=== PATIENT | male | born 1970 | race Caucasian/White ===

== ENCOUNTER 2018-03-13 15:03 | Inpatient (IN) | payer OTHER ==
[2018-03-13 15:35] LABS: BASO % 1.1 % (0-2.0); EOS % 0.4 % (0-4.5); HEMATOCRIT 40.4 % (35.4-49); LYMPH % 15.2 % (8-40); MCH 31.8 pg (25.7-33.7); MCHC 34.7 g/dl (32.0-35.9); MEAN CELL VOLUME 91.7 fl (80-96); MEAN PLT VOLUME 9.4 fl (7.5-11.1); MONO % 20.9 % (3.8-10.2); NEUT % 62.4 % (42.8-82.8); PLATELET COUNT 197 K/MM3 (134-434); RDW 13.5 % (11.9-15.9); WHITE BLOOD COUNT 6.2 K/mm3 (4.0-10.0)
--- NOTE | 2018-03-13 15:59 | PDOC ---
History of Present Illness - General Chief Complaint: Respiratory Stated Complaint: COLD LIKE SYMPTOMS Time Seen by Provider: 03/13/18 15:59 - History of Present Illness Initial Comments: 03/13/18 16:05 Mr. Holm is a 48 yo male w/ pmh of MS ('00) on ocrevus (immunosuppresant 2x per year, last infusion 03/07/18), HLD, who presents for evaluation of 3 day history of cough, fever, body aches, and headache. Patient was initially attempting to manage with symptomatics however presented today as symptoms have not improved. Flu positive at triage. The patient denies chest pain, shortness of breath, and dizziness. Denies chills , nausea, vomit, diarrhea and constipation. Denies dysuria, frequency, urgency and hematuria. Past History - Past Medical History Allergies/Adverse Reactions: Allergies Allergy/AdvReac Type Severity Reaction Status Date / Time No Known Allergies Allergy Verified 03/13/18 15:16 Home Medications: Ambulatory Orders Acetaminophen [Tylenol] 650 mg PO QID 03/13/18 Ocrelizumab [Ocrevus] 500 mg IV ASDIR 03/13/18 Anemia: No Asthma: No Cancer: No Cardiac Disorders: No CVA: No COPD: No CHF: No Dementia: No Diabetes: No GI Disorders: No Disorders: No HTN: No Hypercholesterolemia: Yes Liver Disease: No Seizures: No Thyroid Disease: No Other medical history: MS - Surgical History Abdominal Surgery: No Appendectomy: No Cardiac Surgery: No Cholecystectomy: No Lung Surgery: No Neurologic Surgery: No Orthopedic Surgery: No - Suicide/Smoking/Psychosocial Hx Smoking History: Never smoked Have you smoked in the past 12 months: No Hx Alcohol Use: No Drug/Substance Use Hx: No Substance Use Type: None Review of Systems - Review of Systems Comments:: 03/13/18 16:06 GENERAL/CONSTITUTIONAL: +Fevers as described with body aches, no chills. No weakness. HEAD, EYES, EARS, NOSE AND THROAT: +Left eye vision changes constant from MS. No new change in vision. No ear pain or discharge. No sore throat. CARDIOVASCULAR: No chest pain or shortness of breath RESPIRATORY: +Dry cough, no wheezing, or hemoptysis. GASTROINTESTINAL: No nausea, vomiting, diarrhea or constipation. GENITOURINARY: No dysuria, frequency, or change in urination. MUSCULOSKELETAL: +Body aches as described. No joint or muscle swelling or pain. No neck or back pain. SKIN: No rash NEUROLOGIC: +Headache as described, no vertigo, loss of consciousness, or change in strength/sensation. ENDOCRINE: No increased thirst. No abnormal weight change HEMATOLOGIC/LYMPHATIC: No anemia, easy bleeding, or history of blood clots. ALLERGIC/IMMUNOLOGIC: No hives or skin allergy. *Physical Exam - Vital Signs Last Vital Signs Temp Pulse Resp BP Pulse Ox 101.6 F H 114 H 18 129/84 97 03/13/18 15:19 03/13/18 15:19 03/13/18 15:19 03/13/18 15:19 03/13/18 15:19 - Physical Exam Comments: 03/13/18 16:06 GENERAL: Awake, alert, and fully oriented, in no acute distress HEAD: No signs of trauma, normocephalic, atraumatic EYES: PERRLA, EOMI, sclera anicteric, conjunctiva clear ENT: Auricles normal inspection, hearing grossly normal, nares patent, oropharynx clear without exudates. Moist mucosa NECK: Normal ROM, supple, no lymphadenopathy, JVD, or masses LUNGS: No distress, speaks full sentences, clear to auscultation bilaterally HEART: Regular rate and rhythm, normal S1 and S2, no murmurs, rubs or gallops, peripheral pulses normal and equal bilaterally. ABDOMEN: Soft, nontender, normoactive bowel sounds. No guarding, no rebound. No masses EXTREMITIES: Normal inspection, Normal range of motion, no edema. No clubbing or cyanosis. NEUROLOGICAL: Cranial nerves II through XII grossly intact. Normal speech, normal gait, no focal sensorimotor deficits SKIN: Warm, Dry, normal turgor, no rashes or lesions noted. Moderate Sedation - Procedure Monitoring Vital Signs: Procedure Monitoring Vital Signs Temperature 101.6 F H 03/13/18 15:19 Pulse Rate 114 H 03/13/18 15: Respiratory Rate 18 03/13/18 15:19 Blood Pressure 129/84 03/13/18 15:19 O2 Sat by Pulse Oximetry (%) 97 03/13/18 15:19 ED Treatment Course - LABORATORY CBC & Chemistry Diagram: 03/13/18 15:28 03/13/18 16:40 - ADDITIONAL ORDERS Additional order review: 03/13/18 15:28 RBC 4.40 MCV 91.7 MCHC 34.7 RDW 13.5 MPV 9.4 Neutrophils % 62.4 Lymphocytes % 15.2 D Monocytes % 20.9 H D Eosinophils % 0.4 D Basophils % 1.1 Medical Decision Making - Medical Decision Making 03/13/18 17:22 Mr. Holm is a 48 yo male w/ pmh as described who presents for evaluation of fever in the setting of immunosuppresion with positive type A flu. Patient workup started accordingly for r/o alternate causes of fever. 03/13/18 17:23 Patient labs grossly wnl as below. CXR c/w viral illness. Blood cultures pending. Patient will be admitted for further evaluation and ID consult. Laboratory Results - last 24 hr 03/13/18 03/13/18 03/13/18 15:23 15:28 15:28 WBC 6.2 RBC 4.40 Hgb 14.0 Hct 40.4 MCV 91.7 MCH 31.8 MCHC 34.7 RDW 13.5 Plt Count 197 D MPV 9.4 Absolute Neuts (auto) 3.9 Neutrophils % 62.4 Neutrophils % (Manual) 69.0 Lymphocytes % 15.2 D Lymphocytes % (Manual) 8.0 Monocytes % 20.9 H D Monocytes % (Manual) 23 H Eosinophils % 0.4 D Basophils % 1.1 Nucleated RBC % 0 Platelet Estimate Adequate Platelet Comment No clumping noted PT with INR INR PTT (Actin FS) Sodium 138 Potassium 3.8 Chloride 105 Carbon Dioxide 26 Anion Gap 6 L BUN 11 Creatinine 0.9 Creat Clearance w eGFR > 60 Random Glucose 127 H Lactic Acid Calcium 7.7 L Total Bilirubin 0.3 AST 40 H ALT 75 H Alkaline Phosphatase 63 Troponin I Total Protein 6.6 Albumin 3.6 Influenza A (Rapid) Positive A Influenza B (Rapid) Negative 03/13/18 03/13/18 03/13/18 16:40 16:40 16:40 WBC RBC Hgb Hct MCV MCH MCHC RDW Plt Count MPV Absolute Neuts (auto) Neutrophils % Neutrophils % (Manual) Lymphocytes % Lymphocytes % (Manual) Monocytes % Monocytes % (Manual) Eosinophils % Basophils % Nucleated RBC % Platelet Estimate Platelet Comment PT with INR 12.20 INR 1.03 PTT (Actin FS) 30.9 Sodium 138 Potassium 3.8 Chloride 104 Carbon Dioxide 28 Anion Gap 5 L BUN 11 Creatinine 0.9 Creat Clearance w eGFR > 60 Random Glucose 97 Lactic Acid 0.6 Calcium 7.6 L Total Bilirubin 0.3 AST 37 ALT 75 H Alkaline Phosphatase 62 Troponin I 0.02 Total Protein 6.6 Albumin 3.5 Influenza A (Rapid) Influenza B (Rapid) *DC/Admit/Observation/Transfer Diagnosis at time of Disposition: Immunosuppression, Influenza A Fever Qualifiers: Fever type: unspecified Qualified Code(s): R50.9 - Fever, unspecified - Discharge Dispostion Decision to Admit order: Yes - Referrals - Patient Instructions - Post Discharge Activity
[2018-03-13 16:03] LABS: ALBUMIN 3.6 g/dl (3.4-5.0); ALK PHOS 63 U/L (45-117); ANION GAP 6 MMOL/L (8-16); BILIRUBIN,TOTAL 0.3 mg/dL (0.2-1); BLOOD UREA NITROGEN 11 mg/dL (7-18); CALCIUM 7.7 mg/dL (8.5-10.1); CHLORIDE 105 mmol/L (98-107); CO2 26 mmol/L (21-32); CREATININE 0.9 mg/dL (0.55-1.3); GLUCOSE,RANDOM 127 mg/dL (74-106); POTASSIUM 3.8 mmol/L (3.5-5.1); SGOT/AST 40 U/L (15-37); SGPT/ALT 75 U/L (13-61); SODIUM 138 mmol/L (136-145); TOT PROT 6.6 g/dl (6.4-8.2)
[2018-03-13] MEDS ORDERED: ACETAMINOPHEN 1000 MG/100 ML VIAL (NON FORMULARY) IVPB ONE (16:30)
[2018-03-13] MEDS ORDERED: ACETAMINOPHEN INJECTION 100 ML IVPB ONE (16:40)
[2018-03-13 16:59] LABS: PLATELET ESTIMATE ADEQUATE
--- NOTE | 2018-03-13 17:10 | PDOC ---
Attending Attestation - HPI HPI: 03/13/18 17:16 The patient is a 48 year old male with a significant past medical history of multiple sclerosis (diagnoses in 1999, on Ocrevus), HLD, who presents to the emergency department today complaining of a cough, fever, achiness, and a headache for approximately 3 days. Patient reports using OTC medications for symptoms with no relief. Patient tested positive for flu at triage. The patient denies chest pain, shortness of breath, and dizziness. Denies chills, nausea, vomit, diarrhea and constipation. Denies dysuria, frequency, urgency and hematuria. Allergies: NKA Social history: No reported - Physicial Exam PE: 03/13/18 17:16 GENERAL: (+) fever, body aches. The patient is in no acute distress. No chills or weakness. HEAD: Normal with no signs of trauma. EYES: (+) Left eye vision changes associated with MS. PERRLA, EOMI, sclera anicteric, conjunctiva clear. ENT: Ears normal, nares patent, oropharynx clear without exudates. Moist mucous membranes. NECK: Normal range of motion, supple without lymphadenopathy, JVD, or masses. LUNGS: (+) dry cough. Breath sounds equal, clear to auscultation bilaterally. No wheezes, and no crackles. HEART:Regular rate and rhythm, normal S1 and S2 without murmur, rub or gallop. ABDOMEN: Soft, nontender, normoactive bowel sounds. No guarding, no rebound. No masses palpable. EXTREMITIES: Normal range of motion, no edema. No clubbing or cyanosis. No erythema, or tenderness. NEUROLOGICAL: (+) headache. Cranial nerves II through XII grossly intact. Normal speech. No focal neurological deficits. MUSCULOSKELETAL: Back non-tender to palpation, no CVA tenderness SKIN: Warm, Dry, normal turgor, no rashes or lesions noted. <Nivia Moralez - Last Filed: 03/13/18 17:16> - Resident Resident Name: Jonathan Zarate - ED Attending Attestation I have performed the following: I have examined & evaluated the patient, The case was reviewed & discussed with the resident, I agree w/resident's findings & plan, Exceptions are as noted - Medical Decision Making 03/13/18 17:10 48 yo M h/o HTN, MS (on Ocrelizumab q 6 months, last infusion 1 week ago) Pt began to have fevers and bodyaches 3 days ago No nausea, vomiting, diarrhea (+) non productive cough EKG - Sinus rhythm rate of 106 bpm, axis nml, no st elevation or depression, t waves upright 03/13/18 17:55 Laboratory Tests 03/13/18 03/13/18 03/13/18 15:23 15:28 15:28 WBC 6.2 Hgb 14.0 Hct 40.4 Plt Count 197 D Neutrophils % 62.4 Lymphocytes % 15.2 D BUN 11 Creatinine 0.9 Influenza A (Rapid) Positive A 03/13/18 18:00 Influenza (+) CXR - no infiltrate seen UA - pending Pt is immunosuppressed Will place on observation Pt seen in the ER by the hospitalist 03/13/18 18:04 <Catrina Clancy - Last Filed: 03/13/18 18:04> Attestations - Attestations 03/13/18 17:16 Documentation prepared by Nivia Moralez, acting as medical assistant for Catrina Clancy MD. <Nivia Moralez - Last Filed: 03/13/18 17:16>
[2018-03-13 17:12] LABS: INR 1.03 (0.83-1.09); PROTHROMBIN TIME (PATIENT) 12.2 SEC (9.7-13.0)
[2018-03-13 17:14] LABS: ACTIVATED PTT 30.9 SECONDS (25.2-36.5)
[2018-03-13 17:16] LABS: ALBUMIN 3.5 g/dl (3.4-5.0); ALK PHOS 62 U/L (45-117); ANION GAP 5 MMOL/L (8-16); BILIRUBIN,TOTAL 0.3 mg/dL (0.2-1); BLOOD UREA NITROGEN 11 mg/dL (7-18); CALCIUM 7.6 mg/dL (8.5-10.1); CHLORIDE 104 mmol/L (98-107); CO2 28 mmol/L (21-32); CREATININE 0.9 mg/dL (0.55-1.3); GLUCOSE,RANDOM 97 mg/dL (74-106); POTASSIUM 3.8 mmol/L (3.5-5.1); SGOT/AST 37 U/L (15-37); SGPT/ALT 75 U/L (13-61); SODIUM 138 mmol/L (136-145); TOT PROT 6.6 g/dl (6.4-8.2)
[2018-03-13] MEDS ORDERED: SODIUM CHLORIDE 1,000 ML IV STA ×2 (17:32)
[2018-03-13] MEDS ORDERED: ACETAMINOPHEN 325 MG TABLET (FP) PO PRN (18:07)
--- NOTE | 2018-03-13 18:45 | PN ---
Teaching Attending Note Name of Resident: Sonido Schwartz ATTENDING PHYSICIAN STATEMENT I saw and evaluated the patient. I reviewed the resident's note and discussed the case with the resident. I agree with the resident's findings and plan as documented. SUBJECTIVE: 48 year old male with MS (on Ocrevus, last 03/07), presents with 3 day history of cough, fever, headache. Cough productive of brown phlegm - no hemoptysis. No chest pain/palpitations. OBJECTIVE: Febrile, Hemodynamically Stable. Last Vital Signs Temp Pulse Resp BP Pulse Ox 100.4 F H 106 H 18 132/78 100 03/13/18 17:37 03/13/18 17:37 03/13/18 17:37 03/13/18 17:37 03/13/18 17:37 HEENT - Atraumatic, Normocephalic. Heart - S1, S2, RRR Lungs - no crackles/wheeze Abdomen - Soft, non-tender. Bowel Sounds normal. Extremities - no edema, no calf tenderness. Laboratory Results - last 24 hr 03/13/18 03/13/18 03/13/18 15:23 15:28 15:28 WBC 6.2 RBC 4.40 Hgb 14.0 Hct 40.4 MCV 91.7 MCH 31.8 MCHC 34.7 RDW 13.5 Plt Count 197 D MPV 9.4 Absolute Neuts (auto) 3.9 Neutrophils % 62.4 Neutrophils % (Manual) 69.0 Lymphocytes % 15.2 D Lymphocytes % (Manual) 8.0 Monocytes % 20.9 H D Monocytes % (Manual) 23 H Eosinophils % 0.4 D Basophils % 1.1 Nucleated RBC % 0 Platelet Estimate Adequate Platelet Comment No clumping noted PT with INR INR PTT (Actin FS) Sodium 138 Potassium 3.8 Chloride 105 Carbon Dioxide 26 Anion Gap 6 L BUN 11 Creatinine 0.9 Creat Clearance w eGFR > 60 Random Glucose 127 H Lactic Acid Calcium 7.7 L Total Bilirubin 0.3 AST 40 H ALT 75 H Alkaline Phosphatase 63 Troponin I Total Protein 6.6 Albumin 3.6 Influenza A (Rapid) Positive A Influenza B (Rapid) Negative 03/13/18 03/13/18 03/13/18 16:40 16:40 16:40 WBC RBC Hgb Hct MCV MCH MCHC RDW Plt Count MPV Absolute Neuts (auto) Neutrophils % Neutrophils % (Manual) Lymphocytes % Lymphocytes % (Manual) Monocytes % Monocytes % (Manual) Eosinophils % Basophils % Nucleated RBC % Platelet Estimate Platelet Comment PT with INR 12.20 INR 1.03 PTT (Actin FS) 30.9 Sodium 138 Potassium 3.8 Chloride 104 Carbon Dioxide 28 Anion Gap 5 L BUN 11 Creatinine 0.9 Creat Clearance w eGFR > 60 Random Glucose 97 Lactic Acid 0.6 Calcium 7.6 L Total Bilirubin 0.3 AST 37 ALT 75 H Alkaline Phosphatase 62 Troponin I 0.02 Total Protein 6.6 Albumin 3.5 Influenza A (Rapid) Influenza B (Rapid) Current Medications Generic Name Dose Route Start Last Admin Trade Name Freq PRN Reason Stop Dose Admin Acetaminophen 650 mg 03/13/18 18:07 Tylenol - PO Q4H PRN PAIN OR FEVER Albuterol Sulfate amp 03/13/18 20:00 Ventolin 0.083% Nebulizer Soln - NEB RQID CRISTOFER Sodium Chloride 1,000 mls @ 125 mls/hr 03/13/18 18:15 Normal Saline - IV ASDIR [facility] Oseltamivir Phosphate 75 mg 03/13/18 22:00 Tamiflu - PO 03/18/18 21:59 BID CRISTOFER Home Medications Medication Instructions Recorded Acetaminophen [Tylenol] 650 mg PO QID 03/13/18 Ocrelizumab [Ocrevus] 500 mg IV ASDIR 03/13/18 ASSESSMENT AND PLAN: 48 year old male with MS (on Ocrevus, last 03/07), presents with 3 day history of cough, fever, headache. 1. Sepsis secondary to Flu - Febrile, tachycardia Influenza A positive CXR - no acute cardiopulmonary abnormality IV Hydration DuoNebs Tylenol prn for fever 2. Elevated AST Etiology unclear, will repeat in AM. 3. DVT Px - Lovenox SQ
--- NOTE | 2018-03-13 19:10 | HP ---
CHIEF COMPLAINT: Flu like symptoms PCP: Dr. Overton HISTORY OF PRESENT ILLNESS: 48 yo male with PMH MS on Ocrevus (last infusion 03/07/18) presents with fevers, chills, cough productive of yellow sputum that began 2 days ago. He states that many of his family members around him have all been sick recently. He notes that his last infusion of ocrevus was last week. He denies any recent MS flare ups in the last 2-3 years. He denies any myalgias, n/v/d, abdominal pain. ER course was notable for: (1) Tylenol (2) IVF (3) Flu positive Recent Travel: none PAST MEDICAL HISTORY: MS, possible HTN not on meds PAST SURGICAL HISTORY: Social History: Smoking: Denies Alcohol: Rare wine consumption Drugs: Denies Family History: Allergies No Known Allergies Allergy (Verified 03/13/18 15:16) HOME MEDICATIONS: Home Medications Medication Instructions Recorded Acetaminophen [Tylenol] 650 mg PO QID 03/13/18 Ocrelizumab [Ocrevus] 500 mg IV ASDIR 03/13/18 REVIEW OF SYSTEMS CONSTITUTIONAL: fever, chills, diaphoresis, malaise Absent: , generalized weakness, loss of appetite, weight change HEENT: Absent: rhinorrhea, nasal congestion, throat pain, throat swelling, difficulty swallowing, mouth swelling, ear pain, eye pain, visual changes CARDIOVASCULAR: Absent: chest pain, syncope, palpitations, irregular heart rate, lightheadedness , peripheral edema RESPIRATORY: cough Absent: , shortness of breath, dyspnea with exertion, orthopnea, wheezing, stridor, hemoptysis GASTROINTESTINAL: Absent: abdominal pain, abdominal distension, nausea, vomiting, diarrhea, constipation, melena, hematochezia GENITOURINARY: Absent: dysuria, frequency, urgency, hesitancy, hematuria, flank pain, genital pain MUSCULOSKELETAL: Absent: myalgia, arthralgia, joint swelling, back pain, neck pain SKIN: Absent: rash, itching, pallor HEMATOLOGIC/IMMUNOLOGIC: Absent: easy bleeding, easy bruising, lymphadenopathy, frequent infections ENDOCRINE: Absent: unexplained weight gain, unexplained weight loss, heat intolerance, cold intolerance NEUROLOGIC: Absent: headache, focal weakness or paresthesias, dizziness, unsteady gait, seizure, mental status changes, bladder or bowel incontinence PSYCHIATRIC: Absent: anxiety, depression, suicidal or homicidal ideation, hallucinations. PHYSICAL EXAMINATION Vital Signs - 24 hr 03/13/18 03/13/18 15:19 17:37 Temperature 101.6 F H 100.4 F H Pulse Rate 114 H Pulse Rate [ 106 H Apical] Respiratory 18 18 Rate Blood Pressure 129/84 Blood Pressure 132/78 [Left Arm] O2 Sat by Pulse 97 100 Oximetry (%) GENERAL: A&O, diaphoretic HEAD: Normocephalic, atraumatic. EYES: PERRL, no scleral icterus EARS, NOSE, THROAT: oropharynx clear without exudates. Moist mucous membranes. NECK: supple without lymphadenopathy LUNGS: Minimal expiratory wheezes on the right, minimal rhonchi diffusely HEART: Tachycardic, normal S1 and S2 without murmur ABDOMEN: Obese, Soft, nontender to palpation, normoactive bowel sounds NEUROLOGICAL: Cranial nerves II-XII grossly intact. Normal speech. SKIN: Diaphoretic with some erythema Laboratory Results - last 24 hr 03/13/18 03/13/18 03/13/18 15:23 15:28 15:28 WBC 6.2 RBC 4.40 Hgb 14.0 Hct 40.4 MCV 91.7 MCH 31.8 MCHC 34.7 RDW 13.5 Plt Count 197 D MPV 9.4 Absolute Neuts (auto) 3.9 Neutrophils % 62.4 Neutrophils % (Manual) 69.0 Lymphocytes % 15.2 D Lymphocytes % (Manual) 8.0 Monocytes % 20.9 H D Monocytes % (Manual) 23 H Eosinophils % 0.4 D Basophils % 1.1 Nucleated RBC % 0 Platelet Estimate Adequate Platelet Comment No clumping noted PT with INR INR PTT (Actin FS) Sodium 138 Potassium 3.8 Chloride 105 Carbon Dioxide 26 Anion Gap 6 L BUN 11 Creatinine 0.9 Creat Clearance w eGFR > 60 Random Glucose 127 H Lactic Acid Calcium 7.7 L Total Bilirubin 0.3 AST 40 H ALT 75 H Alkaline Phosphatase 63 Troponin I Total Protein 6.6 Albumin 3.6 Influenza A (Rapid) Positive A Influenza B (Rapid) Negative 03/13/18 03/13/18 03/13/18 16:40 16:40 16:40 WBC RBC Hgb Hct MCV MCH MCHC RDW Plt Count MPV Absolute Neuts (auto) Neutrophils % Neutrophils % (Manual) Lymphocytes % Lymphocytes % (Manual) Monocytes % Monocytes % (Manual) Eosinophils % Basophils % Nucleated RBC % Platelet Estimate Platelet Comment PT with INR 12.20 INR 1.03 PTT (Actin FS) 30.9 Sodium 138 Potassium 3.8 Chloride 104 Carbon Dioxide 28 Anion Gap 5 L BUN 11 Creatinine 0.9 Creat Clearance w eGFR > 60 Random Glucose 97 Lactic Acid 0.6 Calcium 7.6 L Total Bilirubin 0.3 AST 37 ALT 75 H Alkaline Phosphatase 62 Troponin I 0.02 Total Protein 6.6 Albumin 3.5 Influenza A (Rapid) Influenza B (Rapid) ASSESSMENT/PLAN: 48 yo male with PMH MS on Ocrevus (last infusion 03/07/18) presents with fevers, chills, cough productive of yellow sputum that began 2 days ago. Sepsis secondary to Influenza -Influenza A positive -Tamiflu -IVF -Tylenol for fever/pain -Albuterol NEBs for wheezing Elevated ALT -will recheck in AM and workup further if continuing to elevate MS -Stable on Octrevus -Last infusion 03/07/18 -Will moniot DVT Prophylaxis -SCDs and Early Ambulation FEN -Fluids: 2L NS followed by NS @ 125 cc/hr maintenance -Electrolytes: No electrolyte abnormalities, BMP in AM -Nutrition: Regular Diet Disposition Med/Surg Visit type - Emergency Visit Emergency Visit: Yes Care time: The patient presented to the Emergency Department on the above date and was hospitalized for further evaluation of their emergent condition. - New Patient This patient is new to me today: Yes Date on this admission: 03/13/18 - Critical Care Critical Care patient: No
[2018-03-13] MEDS: SODIUM CHLORIDE 1,000 ML IV SCH ×2 (20:18→21:44)
[2018-03-13] MEDS: ALBUTEROL SO4 0.083% IH SOL 2.5 MG/3 ML VIAL.NEB. NEB SCH (20:18)
[2018-03-13] MEDS ORDERED: ENOXAPARIN NA (PORCINE) 40 MG/0.4 ML DISP.SYRIN SQ ONE (20:20)
[2018-03-13] MEDS: ENOXAPARIN NA (PORCINE) 40 MG/0.4 ML DISP.SYRIN SQ SCH (20:38)
[2018-03-13 21:10] LABS: URINE APPEARANCE CLEAR; URINE BILIRUBIN NEGATIVE (<2.0 mg/dL); URINE COLOR YELLOW; URINE GLUCOSE (UA) NEGATIVE (NEGATIVE); URINE KETONE TRACE (NEGATIVE); URINE LEUK ESTERASE NEGATIVE (NEGATIVE); URINE NITRITE NEGATIVE (NEGATIVE); URINE PROTEIN NEGATIVE (NEGATIVE); URINE UROBILINOGEN NEGATIVE mg/dL (0.2-1.0)
[2018-03-13 21:31] LABS: EPI CELLS RARE /HPF (FEW); URINE BACTERIA RARE /hpf (NONE SEEN); URINE MUCUS RARE
[2018-03-13 21:33] VITALS: BMI 32.3
[2018-03-13] MEDS: OSELTAMIVIR PHOSPHATE 75 MG CAPSULE PO SCH (21:44)
[2018-03-14] MEDS ORDERED: MELATONIN 5 MG TABLETS PO ONE (04:14)
[2018-03-14] MEDS: SODIUM CHLORIDE 1,000 ML IV SCH ×2 (04:18→22:58)
[2018-03-14] MEDS ORDERED: guaiFENesin 200 MG/10 ML 10 ML UNIT-DOSE CUPS PO ONE (04:35)
[2018-03-14 07:14] LABS: BASO % 1.3 % (0-2.0); HEMATOCRIT 39.3 % (35.4-49); HEMOGLOBIN 13.3 GM/dL (11.7-16.9); LYMPH % 24.9 % (8-40); MCH 31.1 pg (25.7-33.7); MCHC 33.9 g/dl (32.0-35.9); MEAN CELL VOLUME 91.8 fl (80-96); MEAN PLT VOLUME 10.2 fl (7.5-11.1); MONO % 19.3 % (3.8-10.2); NEUT % 53.5 % (42.8-82.8); PLATELET COUNT 190 K/MM3 (134-434); RBC 4.28 M/mm3 (4.00-5.60); RDW 13.3 % (11.9-15.9); WHITE BLOOD COUNT 4.4 K/mm3 (4.0-10.0)
[2018-03-14 07:44] LABS: ALBUMIN 3.4 g/dl (3.4-5.0); ALK PHOS 55 U/L (45-117); ANION GAP 8 MMOL/L (8-16); BILIRUBIN,TOTAL 0.4 mg/dL (0.2-1); BLOOD UREA NITROGEN 7 mg/dL (7-18); CHLORIDE 108 mmol/L (98-107); CO2 27 mmol/L (21-32); CREATININE 0.7 mg/dL (0.55-1.3); GLUCOSE,RANDOM 94 mg/dL (74-106); MAGNESIUM 2.3 mg/dL (1.8-2.4); PHOSPHOROUS 3.5 mg/dL (2.5-4.9); POTASSIUM 3.9 mmol/L (3.5-5.1); SGOT/AST 33 U/L (15-37); SGPT/ALT 65 U/L (13-61); SODIUM 143 mmol/L (136-145); TOT PROT 6.2 g/dl (6.4-8.2)
[2018-03-14] MEDS: ALBUTEROL SO4 0.083% IH SOL 2.5 MG/3 ML VIAL.NEB. NEB SCH ×4 (08:36→20:40)
[2018-03-14] MEDS: POTASSIUM CHLORIDE TABS 20 MEQ TABLET.ER (FP) PO SCH (10:22)
[2018-03-14] MEDS: OSELTAMIVIR PHOSPHATE 75 MG CAPSULE PO SCH ×2 (10:22→22:57)
[2018-03-14] MEDS: ENOXAPARIN NA (PORCINE) 40 MG/0.4 ML DISP.SYRIN SQ SCH (10:22)
--- NOTE | 2018-03-14 11:58 | EKG ---
Test Reason : Blood Pressure : / mmHG Vent. Rate : 106 BPM Atrial Rate : 106 BPM P-R Int : 132 ms QRS Dur : 094 ms QT Int : 334 ms P-R-T Axes : 060 059 045 degrees QTc Int : 443 ms POOR DATA QUALITY, INTERPRETATION MAY BE ADVERSELY AFFECTED SINUS TACHYCARDIA OTHERWISE NORMAL ECG WHEN COMPARED WITH ECG OF 13-MAY-2014 13:04, NO SIGNIFICANT CHANGE WAS FOUND Confirmed by MARK DRAKE, IRENA ([id number]) on 03/14/2018 11:58:22 AM Referred By: Confirmed By:IRENA FLORES MD
--- NOTE | 2018-03-14 16:09 | DS ---
Physical Exam: SUBJECTIVE: Patient seen and examined this AM and afternoon. He states he is feeling much better than yesterday and states he feels ready to go home. OBJECTIVE: Vital Signs Period Temp Pulse Resp BP Sys/Mckeon Pulse Ox Last 24 Hr 98.3 F-100.8 F 94-106 18-20 132-141/70-89 95-100 PHYSICAL EXAM GENERAL: A&O, no longer diaphoretic HEAD: Normocephalic, atraumatic. EYES: no scleral icterus EARS, NOSE, THROAT: oropharynx clear without exudates. Moist mucous membranes. NECK: supple without lymphadenopathy LUNGS: CTA b/l HEART: Tachycardic, normal S1 and S2 without murmur ABDOMEN: Obese, Soft, nontender to palpation, normoactive bowel sounds NEUROLOGICAL: Cranial nerves II-XII grossly intact. Normal speech. LABS Laboratory Results - last 24 hr 03/13/18 03/13/18 03/13/18 15:23 15:28 16:40 WBC RBC Hgb Hct MCV MCH MCHC RDW Plt Count MPV Absolute Neuts (auto) Neutrophils % Neutrophils % (Manual) 69.0 Lymphocytes % Lymphocytes % (Manual) 8.0 Monocytes % Monocytes % (Manual) 23 H Eosinophils % Basophils % Nucleated RBC % Platelet Estimate Adequate Platelet Comment No clumping noted PT with INR 12.20 INR 1.03 PTT (Actin FS) 30.9 Sodium Potassium Chloride Carbon Dioxide Anion Gap BUN Creatinine Creat Clearance w eGFR Random Glucose Lactic Acid Calcium Phosphorus Magnesium Total Bilirubin AST ALT Alkaline Phosphatase Troponin I Total Protein Albumin Urine Color Urine Appearance Urine pH Ur Specific [place] Urine Protein Urine Glucose (UA) Urine Ketones Urine Blood Urine Nitrite Urine Bilirubin Urine Urobilinogen Ur Leukocyte Esterase Urine WBC (Auto) Urine RBC (Auto) Ur Epithelial Cells Urine Bacteria Urine Mucus Influenza A (Rapid) Positive A Influenza B (Rapid) Negative 03/13/18 03/13/18 03/13/18 16:40 16:40 20:30 WBC RBC Hgb Hct MCV MCH MCHC RDW Plt Count MPV Absolute Neuts (auto) Neutrophils % Neutrophils % (Manual) Lymphocytes % Lymphocytes % (Manual) Monocytes % Monocytes % (Manual) Eosinophils % Basophils % Nucleated RBC % Platelet Estimate Platelet Comment PT with INR INR PTT (Actin FS) Sodium 138 Potassium 3.8 Chloride 104 Carbon Dioxide 28 Anion Gap 5 L BUN 11 Creatinine 0.9 Creat Clearance w eGFR > 60 Random Glucose 97 Lactic Acid 0.6 Calcium 7.6 L Phosphorus Magnesium Total Bilirubin 0.3 AST 37 ALT 75 H Alkaline Phosphatase 62 Troponin I 0.02 Total Protein 6.6 Albumin 3.5 Urine Color Yellow Urine Appearance Clear Urine pH 5.0 Ur Specific [place] 1.025 Urine Protein Negative Urine Glucose (UA) Negative Urine Ketones Trace H Urine Blood 1+ H Urine Nitrite Negative Urine Bilirubin Negative Urine Urobilinogen Negative Ur Leukocyte Esterase Negative Urine WBC (Auto) 2 Urine RBC (Auto) 13 Ur Epithelial Cells Rare Urine Bacteria Rare Urine Mucus Rare Influenza A (Rapid) Influenza B (Rapid) 03/14/18 03/14/18 06:30 06:30 WBC 4.4 RBC 4.28 Hgb 13.3 Hct 39.3 MCV 91.8 MCH 31.1 MCHC 33.9 RDW 13.3 Plt Count 190 MPV 10.2 Absolute Neuts (auto) 2.4 Neutrophils % 53.5 Neutrophils % (Manual) Lymphocytes % 24.9 D Lymphocytes % (Manual) Monocytes % 19.3 H Monocytes % (Manual) Eosinophils % 1.0 D Basophils % 1.3 Nucleated RBC % 0 Platelet Estimate Platelet Comment PT with INR INR PTT (Actin FS) Sodium 143 Potassium 3.9 Chloride 108 H Carbon Dioxide 27 Anion Gap 8 BUN 7 Creatinine 0.7 Creat Clearance w eGFR > 60 Random Glucose 94 Lactic Acid Calcium 8.0 L Phosphorus 3.5 Magnesium 2.3 Total Bilirubin 0.4 AST 33 ALT 65 H Alkaline Phosphatase 55 Troponin I Total Protein 6.2 L Albumin 3.4 Urine Color Urine Appearance Urine pH Ur Specific [place] Urine Protein Urine Glucose (UA) Urine Ketones Urine Blood Urine Nitrite Urine Bilirubin Urine Urobilinogen Ur Leukocyte Esterase Urine WBC (Auto) Urine RBC (Auto) Ur Epithelial Cells Urine Bacteria Urine Mucus Influenza A (Rapid) Influenza B (Rapid) HOSPITAL COURSE: Date of Admission:03/13/18 Date of Discharge: 03/14/18 HPI on Admission: 48 yo male with PMH MS on Ocrevus (last infusion 03/07/18) presents with fevers, chills, cough productive of yellow sputum that began 2 days ago. He states that many of his family members around him have all been sick recently. He notes that his last infusion of ocrevus was last week. He denies any recent MS flare ups in the last 2-3 years. He denies any myalgias, n/v/d, abdominal pain. Hospital Course: He was given 2L of NS on admission followed by maintenance fluids, in addition to Tamiflu. He rapidly improved and was afebrile all day without tylenol. He was deemed medically safe for discharge with continuation of a 5 day course of Tamiflu 75 mg PO BID. He was instructed to follow up with his primary care physician. Minutes to complete discharge: 35 Discharge Summary Reason For Visit: IMMUNIOSUPPRESSION/INFLUENZA DUE TO INFLUENZA Current Active Problems Fever (Acute) Immunosuppression (Acute) Influenza A (Acute) Condition: Stable - Instructions Diet, Activity, Other Instructions: You were admitted for sepsis secondary to flu infection. You had a fever and a fast heart rate. You were given fluids and Tamiflu which greatly improved your symptoms. At this point your fever has resolved and you are safe for discharge. You should continue to drink plenty of fluids and make sure you stay well hydrated You should take 4 more days of Tamiflu 75 mg once in the morning and once at night. You should follow up with your primary care physician in one week or if you have any worsening symptoms prior to then. The information to the resident clinic at [place] has been included in case you do not have a primary care physician Referrals: Fabio Desir MD [Staff Physician] - Disposition: HOME - Home Medications Comprehensive Discharge Medication List: Ambulatory Orders Acetaminophen [Tylenol] 650 mg PO QID 03/13/18 Ocrelizumab [Ocrevus] 500 mg IV ASDIR 03/13/18 Oseltamivir Phosphate [Tamiflu -] 75 mg PO BID #8 capsule 03/14/18 This patient is new to me today: No Emergency Visit: Yes ED Registration Date: 03/13/18 Care time: The patient presented to the Emergency Department on the above date and was hospitalized for further evaluation of their emergent condition. Critical Care patient: No - Discharge Referral Referred to [facility] No
--- NOTE | 2018-03-14 16:20 | PN ---
Teaching Attending Note Name of Resident: Sonido Schwartz ATTENDING PHYSICIAN STATEMENT I saw and evaluated the patient. I reviewed the resident's note and discussed the case with the resident. I agree with the resident's findings and plan as documented. SUBJECTIVE: Feeling much better - cough improving, fever resolved. T 100.4 overnight. OBJECTIVE: Tmax 100.4, Hemodynamically Stable. Last Vital Signs Temp Pulse Resp BP Pulse Ox 97.8 F 97 H 19 137/85 96 03/14/18 14:00 03/14/18 14:00 03/14/18 14:00 03/14/18 14:00 03/14/18 09:00 HEENT - Atraumatic, Normocephalic. Heart - S1, S2, RRR Lungs - no crackles/wheeze Abdomen - Soft, non-tender. Bowel Sounds normal. Extremities - no edema, no calf tenderness. Laboratory Results - last 24 hr 03/13/18 03/13/18 03/13/18 15:23 15:28 16:40 WBC RBC Hgb Hct MCV MCH MCHC RDW Plt Count MPV Absolute Neuts (auto) Neutrophils % Neutrophils % (Manual) 69.0 Lymphocytes % Lymphocytes % (Manual) 8.0 Monocytes % Monocytes % (Manual) 23 H Eosinophils % Basophils % Nucleated RBC % Platelet Estimate Adequate Platelet Comment No clumping noted PT with INR 12.20 INR 1.03 PTT (Actin FS) 30.9 Sodium Potassium Chloride Carbon Dioxide Anion Gap BUN Creatinine Creat Clearance w eGFR Random Glucose Lactic Acid Calcium Phosphorus Magnesium Total Bilirubin AST ALT Alkaline Phosphatase Troponin I Total Protein Albumin Urine Color Urine Appearance Urine pH Ur Specific [place] Urine Protein Urine Glucose (UA) Urine Ketones Urine Blood Urine Nitrite Urine Bilirubin Urine Urobilinogen Ur Leukocyte Esterase Urine WBC (Auto) Urine RBC (Auto) Ur Epithelial Cells Urine Bacteria Urine Mucus Influenza A (Rapid) Positive A Influenza B (Rapid) Negative 03/13/18 03/13/18 03/13/18 16:40 16:40 20:30 WBC RBC Hgb Hct MCV MCH MCHC RDW Plt Count MPV Absolute Neuts (auto) Neutrophils % Neutrophils % (Manual) Lymphocytes % Lymphocytes % (Manual) Monocytes % Monocytes % (Manual) Eosinophils % Basophils % Nucleated RBC % Platelet Estimate Platelet Comment PT with INR INR PTT (Actin FS) Sodium 138 Potassium 3.8 Chloride 104 Carbon Dioxide 28 Anion Gap 5 L BUN 11 Creatinine 0.9 Creat Clearance w eGFR > 60 Random Glucose 97 Lactic Acid 0.6 Calcium 7.6 L Phosphorus Magnesium Total Bilirubin 0.3 AST 37 ALT 75 H Alkaline Phosphatase 62 Troponin I 0.02 Total Protein 6.6 Albumin 3.5 Urine Color Yellow Urine Appearance Clear Urine pH 5.0 Ur Specific [place] 1.025 Urine Protein Negative Urine Glucose (UA) Negative Urine Ketones Trace H Urine Blood 1+ H Urine Nitrite Negative Urine Bilirubin Negative Urine Urobilinogen Negative Ur Leukocyte Esterase Negative Urine WBC (Auto) 2 Urine RBC (Auto) 13 Ur Epithelial Cells Rare Urine Bacteria Rare Urine Mucus Rare Influenza A (Rapid) Influenza B (Rapid) 03/14/18 03/14/18 06:30 06:30 WBC 4.4 RBC 4.28 Hgb 13.3 Hct 39.3 MCV 91.8 MCH 31.1 MCHC 33.9 RDW 13.3 Plt Count 190 MPV 10.2 Absolute Neuts (auto) 2.4 Neutrophils % 53.5 Neutrophils % (Manual) Lymphocytes % 24.9 D Lymphocytes % (Manual) Monocytes % 19.3 H Monocytes % (Manual) Eosinophils % 1.0 D Basophils % 1.3 Nucleated RBC % 0 Platelet Estimate Platelet Comment PT with INR INR PTT (Actin FS) Sodium 143 Potassium 3.9 Chloride 108 H Carbon Dioxide 27 Anion Gap 8 BUN 7 Creatinine 0.7 Creat Clearance w eGFR > 60 Random Glucose 94 Lactic Acid Calcium 8.0 L Phosphorus 3.5 Magnesium 2.3 Total Bilirubin 0.4 AST 33 ALT 65 H Alkaline Phosphatase 55 Troponin I Total Protein 6.2 L Albumin 3.4 Urine Color Urine Appearance Urine pH Ur Specific [place] Urine Protein Urine Glucose (UA) Urine Ketones Urine Blood Urine Nitrite Urine Bilirubin Urine Urobilinogen Ur Leukocyte Esterase Urine WBC (Auto) Urine RBC (Auto) Ur Epithelial Cells Urine Bacteria Urine Mucus Influenza A (Rapid) Influenza B (Rapid) Current Medications Generic Name Dose Route Start Last Admin Trade Name Freq PRN Reason Stop Dose Admin Acetaminophen 650 mg 03/13/18 18:07 03/14/18 03:52 Tylenol - PO 650 mg Q4H PRN Administration FEVER Albuterol Sulfate 1 amp 03/13/18 20:00 03/14/18 16:13 Ventolin 0.083% Nebulizer Soln - NEB 1 amp RQID CRISTOFER Administration Enoxaparin Sodium 40 mg 03/13/18 19:15 03/14/18 10:22 Lovenox - SQ 40 mg DAILY CRISTOFER Administration Sodium Chloride 1,000 mls @ 125 mls/hr 03/13/18 18:15 03/14/18 04:18 Normal Saline - IV 125 mls/hr ASDIR CRISTOFER Administration Oseltamivir Phosphate 75 mg 03/13/18 22:00 03/14/18 10:22 Tamiflu - PO 03/18/18 21:59 75 mg BID CRISTOFER Administration Potassium Chloride 40 meq 03/14/18 10:00 03/14/18 10:22 K-Dur - PO 40 meq DAILY CRISTOFER Administration ASSESSMENT AND PLAN: 48 year old male with MS (on Ocrevus, last 03/07), presents with 3 day history of cough, fever, headache. 1. Sepsis secondary to Flu - resolved. Influenza A positive CXR - no acute cardiopulmonary abnormality Continue Tamiflu for total 5 days. 2. Elevated AST No abdominal pain/tenderness/nausea. Etiology unclear, repeat level improving. No history of alcohol excess, hepatitis. For out-patient follow up with PCP for repeat level. Medically and Hemodynamically stable for discharge on Tamiflu.
[2018-03-15] MEDS: SODIUM CHLORIDE 1,000 ML IV SCH (06:09)
[2018-03-15 06:12] VITALS: BP 135/96; PULSE 91
[2018-03-15] MEDS: ALBUTEROL SO4 0.083% IH SOL 2.5 MG/3 ML VIAL.NEB. NEB SCH ×2 (07:36→12:11)
--- NOTE | 2018-03-15 08:48 | PN ---
Progress Note (short form) - Note Progress Note: Update: Pt has been afebrile with most recent oral temperature of 98.4. D/c order placed ----- Pt's d/c cancelled yesterday due to active fever to 100.6F orally. Pt made aware and was okay with staying the night. Pt has no complaints today and feels better. No fevers recorded last night. Pt denies any diaphoresis/night sweats or increased subjective fevers. Pt is okay with leaving today and tolerating food and walking. PE: GEN: NAD, oriented x3, alert, sitting up in bed HEENT: NC/AT, DANE, MMM LUNG: CTA b/l no accessory muscle use. On RA CARD: RRR no murmurs ABD: Soft, NT/ND, normoactive BS, no guarding EXT: No edema, symmetrical DP pulses 2+ A/P 48yo M who was found to have Influenza A infection and fevers. Pt received Tamiflu and IV fluids due to fevers and subsequently improved. No fevers last night. Pt is okay with going home today after lunch (afebrile status allowing) and will be sent with Tamiflu 75mg BID totalling 5 days for influenza infection. Rest per DC summary yesterday
[2018-03-15] MEDS: ENOXAPARIN NA (PORCINE) 40 MG/0.4 ML DISP.SYRIN SQ SCH (09:05)
[2018-03-15] MEDS: OSELTAMIVIR PHOSPHATE 75 MG CAPSULE PO SCH (09:05)
[2018-03-15] MEDS: POTASSIUM CHLORIDE TABS 20 MEQ TABLET.ER (FP) PO SCH (09:05)
--- NOTE | 2018-03-15 12:12 | PN ---
Teaching Attending Note Name of Resident: Priyank Heath ATTENDING PHYSICIAN STATEMENT I saw and evaluated the patient. I reviewed the resident's note and discussed the case with the resident. I agree with the resident's findings and plan as documented. SUBJECTIVE: Feeling much better - cough improving, Fever 100.6 again yesterday afternoon. OBJECTIVE: Tmax 100.6, Hemodynamically Stable. Last Vital Signs Temp Pulse Resp BP Pulse Ox 97.9 F 91 H 20 135/96 96 03/15/18 06:00 03/15/18 06:00 03/15/18 06:00 03/15/18 06:00 03/15/18 09:00 HEENT - Atraumatic, Normocephalic. Heart - S1, S2, RRR Lungs - no crackles/wheeze Abdomen - Soft, non-tender. Bowel Sounds normal. Extremities - no edema, no calf tenderness. Current Medications Generic Name Dose Route Start Last Admin Trade Name Freq PRN Reason Stop Dose Admin Acetaminophen 650 mg 03/13/18 18:07 03/14/18 03:52 Tylenol - PO 650 mg Q4H PRN Administration FEVER Albuterol Sulfate 1 amp 03/13/18 20:00 03/15/18 12:11 Ventolin 0.083% Nebulizer Soln - NEB 1 amp RQID CRISTOFER Administration Enoxaparin Sodium 40 mg 03/13/18 19:15 03/15/18 09:05 Lovenox - SQ 40 mg DAILY CRISTOFER Administration Oseltamivir Phosphate 75 mg 03/13/18 22:00 03/15/18 09:05 Tamiflu - PO 03/18/18 21:59 75 mg BID CRISTOFER Administration Potassium Chloride 40 meq 03/14/18 10:00 03/15/18 09:05 K-Dur - PO 40 meq DAILY CRISTOFER Administration ASSESSMENT AND PLAN: 48 year old male with MS (on Ocrevus, last 03/07), presents with 3 day history of cough, fever, headache. 1. Sepsis secondary to Flu - resolved Influenza A positive CXR - no acute cardiopulmonary abnormality Continue Tamiflu for total 5 days. Medically stable for discharge if no further fever this am. Advised to return to ED if any worsening of his symptoms. 2. Elevated AST No abdominal pain/tenderness/nausea. Etiology unclear, repeat level improving. No history of alcohol excess or hepatitis. For out-patient follow up with PCP for repeat level. Medically and Hemodynamically stable for discharge on Tamiflu.
[2018-03-15 13:12] VITALS: TEMP 98.4
== END 2018-03-15 14:48 | disposition home or self-care (01) | DRG 113 ==
LOC: JER 15:03 → JERBED 17:25 → J8W 21:21
DX: J09.X2 Influenza due to identified novel influenza A virus with other respiratory manifestations (principal); R50.9 Fever, unspecified; R00.0 Tachycardia, unspecified; E78.5 Hyperlipidemia, unspecified; G35 Multiple sclerosis
CPT/HCPCS: 36415; 71045-TC-FY; 76705-TC; 80053; 81003; 81015; 83605; 83735; 84100; 84484; 85025; 85610; 85730; 87040; 87086; 87804; 93005; 93010; 94010; 94640; 99283-25; J0131; J7030

== ENCOUNTER 2020-06-27 15:18 | Inpatient (IN) | payer OTHER ==
[2020-06-27 17:12] LABS: EPI CELLS 5 /uL (0-25.1); HYALINE CASTS 13 /uL (0-3.1); PH,URINE 5.5 (5.0-8.0); URINE APPEARANCE CLOUDY; URINE BACTERIA 865 /uL (0-1359); URINE BILIRUBIN NEGATIVE (NEGATIVE); URINE COLOR DK YELLOW; URINE GLUCOSE (UA) NEGATIVE (NEGATIVE); URINE KETONE TRACE (NEGATIVE); URINE LEUK ESTERASE 1+ (NEGATIVE); URINE NITRITE NEGATIVE (NEGATIVE); URINE PROTEIN 1+ (NEGATIVE); URINE WBC 272 /uL (0-25.8)
[2020-06-27] MEDS ORDERED: CEFTRIAXONE 1 GM in DEXTROSE 5%-WATER - 100 ML IVPB ONE (17:26)
[2020-06-27] MEDS ORDERED: ACETAMINOPHEN 1000 MG/100 ML VIAL (NON FORMULARY) IVPB ONE (17:26)
[2020-06-27] MEDS ORDERED: SODIUM CHLORIDE 0.9% 1000 ML INFUS.BAG IV ONE ×2 (17:26→23:00)
[2020-06-27 17:34] LABS: BASO % 0.5 % (0-2.0); EOS % 0.5 % (0-4.5); HEMOGLOBIN 13.2 GM/dL (11.7-16.9); LYMPH % 9.3 % (8-40); MCH 31.4 pg (25.7-33.7); MCHC 33.8 g/dl (32.0-35.9); MEAN CELL VOLUME 92.7 fl (80-96); MEAN PLT VOLUME 9.8 fl (7.5-11.1); MONO % 9.9 % (3.8-10.2); NEUT % 79.8 % (42.8-82.8); PLATELET COUNT 269 K/MM3 (134-434); RBC 4.21 M/mm3 (4.00-5.60); RDW 13.2 % (11.9-15.9); WHITE BLOOD COUNT 15.2 K/mm3 (4.0-10.0)
[2020-06-27 17:52] LABS: ALBUMIN 3.4 g/dl (3.4-5.0); BLOOD UREA NITROGEN 13.1 mg/dL (7-18); CALCIUM 8.8 mg/dL (8.5-10.1)
[2020-06-27] MEDS ORDERED: ACETAMINOPHEN INJECTION 100 ML IVPB ONE (17:57)
[2020-06-27 17:58] LABS: BILIRUBIN,TOTAL 0.4 mg/dL (0.2-1); TOT PROT 6.8 g/dl (6.4-8.2)
[2020-06-27] MEDS ORDERED: CEFTRIAXONE 1 GM/50 ML BAG ONE (17:58)
[2020-06-27 19:09] LABS: URINE RBC 282.9 /uL (0-23.9); YEAST NEGATIVE (NEGATIVE)
[2020-06-27] MEDS ORDERED: ENOXAPARIN NA (PORCINE) 30 MG/0.3 ML DISP.SYRIN SQ SCH (22:00)
[2020-06-28] MEDS ORDERED: ACETAMINOPHEN 325 MG TABLET (FP) ONE (01:21)
[2020-06-28] MEDS: ACETAMINOPHEN 325 MG TABLET (FP) PO PRN ×2 (01:26→16:30)
[2020-06-28] MEDS ORDERED: CEFTRIAXONE 1 GM in DEXTROSE 5%-WATER - 100 ML IVPB ONE (01:43)
[2020-06-28] MEDS: SODIUM CHLORIDE 1,000 ML IV SCH ×2 (04:08→06:40)
[2020-06-28 06:31] LABS: HEMATOCRIT 36.8 % (35.4-49); HEMOGLOBIN 12.3 GM/dL (11.7-16.9); MCH 31.3 pg (25.7-33.7); MCHC 33.5 g/dl (32.0-35.9); MEAN CELL VOLUME 93.4 fl (80-96); MEAN PLT VOLUME 9.5 fl (7.5-11.1); PLATELET COUNT 250 K/MM3 (134-434); RBC 3.94 M/mm3 (4.00-5.60); RDW 13.2 % (11.9-15.9)
[2020-06-28 06:35] VITALS: BMI 35.6
[2020-06-28 07:06] LABS: ALBUMIN 3.1 g/dl (3.4-5.0); BLOOD UREA NITROGEN 8.2 mg/dL (7-18); CALCIUM 7.8 mg/dL (8.5-10.1)
[2020-06-28 07:09] LABS: CREATININE 0.7 mg/dL (0.55-1.3); PHOSPHOROUS 3.6 mg/dL (2.5-4.9)
[2020-06-28 07:10] LABS: BILIRUBIN,TOTAL 0.5 mg/dL (0.2-1)
[2020-06-28 07:11] LABS: TOT PROT 6.2 g/dl (6.4-8.2)
[2020-06-28] MEDS: RAMIPRIL 5 MG CAPSULE PO SCH (09:24)
[2020-06-28] MEDS: ENOXAPARIN NA (PORCINE) 40 MG/0.4 ML DISP.SYRIN SQ SCH (09:24)
[2020-06-28] MEDS ORDERED: CEFTRIAXONE 1 GM in DEXTROSE 5%-WATER - 100 ML IVPB SCH (10:00)
[2020-06-28] MEDS ORDERED: CEFTRIAXONE 1 GM in DEXTROSE 5%-WATER 100 ML IVPB SCH (10:34)
[2020-06-28] MEDS ORDERED: cefTRIAXone SODIUM 1 GM VIAL ONE (10:59)
[2020-06-28] MEDS ORDERED: DEXTROSE 5%-WATER 100 ML IVPB ONE (10:59)
[2020-06-28] MEDS ORDERED: PIPERACILLIN/TAZOBACTAM 3.375 GM VIAL IVPB ONE (17:30)
[2020-06-28] MEDS ORDERED: DEXTROSE 5%-WATER - 50 ML IVPB ONE (17:31)
[2020-06-28] MEDS: PIPERACILLIN/TAZOB 3.375 GM 3.375 GM in DEXTROSE 5%-WATER - 50 ML IVPB SCH (17:41)
[2020-06-29] MEDS ORDERED: DEXTROSE 5%-WATER - 50 ML IVPB ONE ×3 (00:56→18:10)
[2020-06-29] MEDS ORDERED: PIPERACILLIN/TAZOBACTAM 3.375 GM VIAL IVPB ONE ×4 (00:56→18:10)
[2020-06-29] MEDS: PIPERACILLIN/TAZOB 3.375 GM 3.375 GM in DEXTROSE 5%-WATER - 50 ML IVPB SCH ×3 (01:16→18:13)
[2020-06-29 08:25] LABS: HEMATOCRIT 38.8 % (35.4-49); HEMOGLOBIN 13.1 GM/dL (11.7-16.9); MCH 31.4 pg (25.7-33.7); MCHC 33.9 g/dl (32.0-35.9); MEAN CELL VOLUME 92.6 fl (80-96); MEAN PLT VOLUME 9.4 fl (7.5-11.1); PLATELET COUNT 330 K/MM3 (134-434); RBC 4.19 M/mm3 (4.00-5.60); RDW 13.1 % (11.9-15.9); WHITE BLOOD COUNT 9.6 K/mm3 (4.0-10.0)
[2020-06-29] MEDS: SODIUM CHLORIDE 1,000 ML IV SCH ×2 (08:51→11:09)
[2020-06-29 08:55] LABS: ALBUMIN 3.3 g/dl (3.4-5.0); BLOOD UREA NITROGEN 7.6 mg/dL (7-18); CALCIUM 8.9 mg/dL (8.5-10.1)
[2020-06-29 08:59] LABS: BILIRUBIN,TOTAL 0.5 mg/dL (0.2-1); CREATININE 0.6 mg/dL (0.55-1.3); TOT PROT 6.9 g/dl (6.4-8.2)
[2020-06-29] MEDS: ENOXAPARIN NA (PORCINE) 40 MG/0.4 ML DISP.SYRIN SQ SCH (10:57)
[2020-06-29] MEDS: RAMIPRIL 5 MG CAPSULE PO SCH (10:58)
[2020-06-30] MEDS ORDERED: PIPERACILLIN/TAZOBACTAM 3.375 GM VIAL IVPB ONE ×2 (00:58→09:10)
[2020-06-30] MEDS ORDERED: DEXTROSE 5%-WATER - 50 ML IVPB ONE ×2 (00:58→09:10)
[2020-06-30] MEDS: PIPERACILLIN/TAZOB 3.375 GM 3.375 GM in DEXTROSE 5%-WATER - 50 ML IVPB SCH ×2 (01:25→09:13)
[2020-06-30] MEDS: SODIUM CHLORIDE 1,000 ML IV SCH ×3 (05:59→23:04)
[2020-06-30 08:10] LABS: HEMATOCRIT 38.7 % (35.4-49); HEMOGLOBIN 13.3 GM/dL (11.7-16.9); MCH 31.9 pg (25.7-33.7); MCHC 34.3 g/dl (32.0-35.9); MEAN PLT VOLUME 9.2 fl (7.5-11.1); PLATELET COUNT 363 K/MM3 (134-434); RBC 4.16 M/mm3 (4.00-5.60); RDW 13.1 % (11.9-15.9); WHITE BLOOD COUNT 7.5 K/mm3 (4.0-10.0)
[2020-06-30 08:43] LABS: CALCIUM 8.9 mg/dL (8.5-10.1)
[2020-06-30 08:44] LABS: BLOOD UREA NITROGEN 9.8 mg/dL (7-18)
[2020-06-30 08:47] LABS: CREATININE 0.7 mg/dL (0.55-1.3)
[2020-06-30] MEDS: ENOXAPARIN NA (PORCINE) 40 MG/0.4 ML DISP.SYRIN SQ SCH (09:13)
[2020-06-30] MEDS: RAMIPRIL 5 MG CAPSULE PO SCH (09:14)
[2020-06-30] MEDS: SULFAMETHOXAZOLE/TRIMETHOPRIM 800MG/160MG D.S. TABLET PO SCH ×2 (13:34→21:06)
[2020-07-01 08:41] LABS: HEMOGLOBIN 13.4 GM/dL (11.7-16.9); MCH 31.4 pg (25.7-33.7); MCHC 33.5 g/dl (32.0-35.9); MEAN CELL VOLUME 93.7 fl (80-96); MEAN PLT VOLUME 9.2 fl (7.5-11.1); PLATELET COUNT 380 K/MM3 (134-434); RBC 4.26 M/mm3 (4.00-5.60); RDW 13.1 % (11.9-15.9); WHITE BLOOD COUNT 7.2 K/mm3 (4.0-10.0)
[2020-07-01 08:59] LABS: ALBUMIN 3.5 g/dl (3.4-5.0); BLOOD UREA NITROGEN 12.1 mg/dL (7-18); CALCIUM 8.6 mg/dL (8.5-10.1)
[2020-07-01 09:02] LABS: CREATININE 0.7 mg/dL (0.55-1.3)
[2020-07-01 09:04] LABS: BILIRUBIN,TOTAL 0.4 mg/dL (0.2-1); TOT PROT 6.9 g/dl (6.4-8.2)
[2020-07-01] MEDS: ENOXAPARIN NA (PORCINE) 40 MG/0.4 ML DISP.SYRIN SQ SCH (09:37)
[2020-07-01] MEDS: SULFAMETHOXAZOLE/TRIMETHOPRIM 800MG/160MG D.S. TABLET PO SCH (09:37)
[2020-07-01] MEDS: RAMIPRIL 5 MG CAPSULE PO SCH (09:38)
[2020-07-01 15:37] VITALS: BP 124/72; PULSE 89; TEMP 97.7
== END 2020-07-01 16:30 | disposition home or self-care (01) | DRG 720 ==
LOC: JER 15:18 → JERBED 20:53 → MERGE 20:53 → J8W 06-28 05:55
PROVIDERS: ADMIT Hospitalist; ATTEND Internal Medicine
DX: A41.59 Other Gram-negative sepsis (principal); R00.0 Tachycardia, unspecified; R74.01 Elevation of levels of liver transaminase levels; D72.829 Elevated white blood cell count, unspecified; G35 Multiple sclerosis; N39.0 Urinary tract infection, site not specified; I10 Essential (primary) hypertension; E66.9 Obesity, unspecified; Z68.35 Body mass index [BMI] 35.0-35.9, adult; E78.5 Hyperlipidemia, unspecified
CPT/HCPCS: 36415; 71046-TC-FY; 76705-TC; 76775-TC; 76856-TC; 80048; 80053; 81003; 83605; 83735; 84100; 85025; 85027; 87040; 87086; 87186; 87804; 93005; 93010; 99285-25; C9803; J0131; U0003; U0005

== ENCOUNTER 2020-08-13 16:03 | Emergency (ER) | payer OTHER ==
[2020-08-13 16:07] VITALS: BMI 33.7
[2020-08-13 18:16] LABS: EPI CELLS 8 /uL (0-25.1); HYALINE CASTS 2 /uL (0-3.1); URINE APPEARANCE CLEAR; URINE BACTERIA 7 /uL (0-1359); URINE BILIRUBIN NEGATIVE (NEGATIVE); URINE COLOR YELLOW; URINE GLUCOSE (UA) NEGATIVE (NEGATIVE); URINE KETONE TRACE (NEGATIVE); URINE LEUK ESTERASE NEGATIVE (NEGATIVE); URINE NITRITE NEGATIVE (NEGATIVE); URINE PROTEIN NEGATIVE (NEGATIVE); URINE RBC 33 /uL (0-23.9); URINE WBC 13 /uL (0-25.8)
[2020-08-13 19:15] LABS: EOS % 2.6 % (0-4.5); HEMATOCRIT 41.6 % (35.4-49); HEMOGLOBIN 14.1 GM/dL (11.7-16.9); MCHC 33.9 g/dl (32.0-35.9); MEAN CELL VOLUME 91.5 fl (80-96); MEAN PLT VOLUME 9.6 fl (7.5-11.1); MONO % 6.7 % (3.8-10.2); NEUT % 70.7 % (42.8-82.8); PLATELET COUNT 437 10^3/uL (134-434); RBC 4.55 M/mm3 (4.00-5.60); RDW 13.6 % (11.9-15.9); WHITE BLOOD COUNT 9.3 K/mm3 (4.0-10.0)
[2020-08-13 19:35] LABS: BLOOD UREA NITROGEN 16.8 mg/dL (7-18); CALCIUM 8.8 mg/dL (8.5-10.1)
[2020-08-13 19:36] LABS: ALBUMIN 3.9 g/dl (3.4-5.0)
[2020-08-13 19:38] LABS: CREATININE 0.8 mg/dL (0.55-1.3)
[2020-08-13 19:40] LABS: BILIRUBIN,TOTAL 0.2 mg/dL (0.2-1); TOT PROT 7.3 g/dl (6.4-8.2)
[2020-08-13 20:11] VITALS: BP 112/80; PULSE 84; TEMP 99
== END 2020-08-13 21:14 | disposition home or self-care (01) ==
LOC: JER 16:03
DX: R30.0 Dysuria (principal); R50.9 Fever, unspecified
CPT/HCPCS: 36415; 76775-TC; 80053; 81003; 85025; 87086; 99284-25

== ENCOUNTER 2022-01-11 15:22 | Emergency (ER) | payer OTHER ==
[2022-01-11 16:36] VITALS: BP 109/76; RESP 18; TEMP 98.4; BMI 34.2
[2022-01-11 18:25] VITALS: PULSE 89
== END 2022-01-11 18:25 | disposition home or self-care (01) ==
LOC: JER 15:22
DX: R09.81 Nasal congestion (principal); Z20.822 Contact with and (suspected) exposure to COVID-19
CPT/HCPCS: 0241U-QW; 99283-25